=== PATIENT | female | born 1990 | race Hispanic/Latino ===

== ENCOUNTER 2016-12-02 13:31 | Emergency (ER) | payer OTHER ==
--- NOTE | 2016-12-02 13:46 | ED PDOC ---
Arrival/HPI - General Time Seen by Provider: 12/02/16 13:46 Historian: Patient - History of Present Illness Narrative History of Present Illness (Text): 12/02/16 13:46 26 y/o female, LMP 07/20/2016, , approx. 23 weeks , nkda, c/o lower pelvic cramp x 1 day with no fall or trauma. Pt. stated that she had lunch earlier, decided to check her blood pressure which was 160s/80s but 147/92 now, suddenly has the lower pelvic cramp, came to the ER. Pt. stated that [place]gyn [place] DR. Vinh Esparza. Pt. has no vaginal bleeding or discharge, no headache or night sweat, no dizziness, no rash, no other medical or psychological complaints. Past Medical History - Provider Review Nursing Documentation Reviewed: Yes - Cardiac Hx Cardiac Disorders: No Hx Hypertension: No - Pulmonary Hx Tuberculosis: No - Neurological HX Cerebrovascular Accident: No Hx Seizures: No - Hematological/Oncological Hx Cancer: No - Genitourinary/Gynecological Hx Sexually Transmitted Diseases: No - Psychiatric Hx Substance Use: Yes Family/Social History - Physician Review Nursing Documentation Reviewed: Yes Family/Social History: Unknown Family HX Hx Alcohol Use: Yes Hx Substance Use: Yes Substance used: MARIJUANA Allergies/Home Meds Allergies/Adverse Reactions: Allergies No Known Allergies Allergy (Verified 12/02/16 13:50) Home Medications: Home Meds Medication Instructions Recorded Confirmed #92/Iron/FA #8/Ps-Dha 1 each PO DAILY 12/02/16 12/02/16 [Enbrace Hr Softgel] Review of Systems - Review of Systems Constitutional: absent: Fatigue, Fevers Eyes: absent: Vision Changes ENT: absent: Hearing Changes Respiratory: absent: SOB, Cough Cardiovascular: absent: Chest Pain Gastrointestinal: absent: Abdominal Pain, Diarrhea, Nausea, Vomiting Genitourinary Female: absent: Dysuria, Frequency, Urine Output Changes, Vaginal Discharge Skin: absent: Rash, Pruritis Neurological: absent: Headache, Dizziness, Focal Weakness Psychiatric: absent: Anxiety, Depression Physical Exam Vital Signs Reviewed: Yes Vital Signs Temp Pulse Resp BP Pulse Ox 12/02/16 13:45 98.3 F 96 H 16 147/92 H 99 Temperature: Afebrile Blood Pressure: Hypertensive Pulse: Regular Respiratory Rate: Normal Appearance: Positive for: Well-Appearing, Non-Toxic, Comfortable Pain Distress: Mild Mental Status: Positive for: Alert and Oriented X 3 - Systems Exam Head: Present: Atraumatic, Normocephalic Pupils: Present: PERRL Extroacular Muscles: Present: EOMI Conjunctiva: Present: Normal Mouth: Present: Moist Mucous Membranes Neck: Present: Normal Range of Motion Respiratory/Chest: Present: Clear to Auscultation, Good Air Exchange. No: Respiratory Distress, Accessory Muscle Use Cardiovascular: Present: Regular Rate and Rhythm, Normal S1, S2. No: Murmurs Abdomen: Present: Normal Bowel Sounds. 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 No: Vaginal Discharge, Vaginal Bleeding, Adenexal Tenderness, Adenexal Mass, Cervical Motion Tendernes , Odor Back: Present: Normal Inspection Upper Extremity: Present: Normal Inspection. No: Cyanosis, Edema Lower Extremity: Present: Normal Inspection. No: Edema Neurological: Present: GCS=15, Speech Normal, Motor Func Grossly Intact, Gait Normal, Memory Normal Skin: Present: Warm, Dry, Normal Color. No: Rashes Psychiatric: Present: Alert, Oriented x 3, Normal Insight, Normal Concentration Medical Decision Making ED Course and Treatment: 12/02/16 14:43 -labs/ua -IVF/tylenol -Pelvic sono -Observe and reassess 12/02/16 15:43 -Labs are non-significant except wbc 18.6 and beta hcg 5009.80, afebrile with no fever or chills, no URI symptoms, blood culture added -UA show no UTI -Sonogram show Single live intrauterine gestation of approximately 23 weeks 0 days without evidence of anatomic abnormality. Breech presentation. Anterior placenta. No previa. Cervix closed. heart rate 162 beats per minute. EFW 529.11 g. -I discussed with the patient that she should be monitor and observed to a facility that has obgyn for further evaluation as this pain/wbc is unclear. 12/02/16 15:56 -Pt. refused transfer to another hospital to be evaluated by another obgyn or hospital, wants to be transferred to her own obgyn [facility] obgyn DR. Calli Carranza. -Paged out to Dr. Carranza. 12/02/16 16:40 -I spoke to DR. Nelson, discussed about the HPI/case/labs/radiology results/ vital signs in details, suggest no admission or transfer/observation indicated since patient labs and sonogram within normal limit except wbc 18 which don't treat the lab and treat the patient, suggest to repeat cbc in 1 week -I spoke to DR. Carranza's FREDY Ge, discussed about the case in detail including labs/radiology results and Dr. Nelson's consult, FREDY Ge stated that the patient can be discharged home and she will see the patient with DR. Pee hawk before 8pm or tomorrow morning -I discussed with Dr. Seay, discussed about the labs/radiology results/Dr. Nelson and Pee's FREDY Ge's consults, agreed that the patient can be discharged home. -Pt. is asymptomatic wbc 18 with the pelvic pain resolved. -Discharge home with education on taking tylenol for pain as needed, YOU NEED TO GO TO SEE DR. CARRANZA/FREDY HAWK BEFORE 8PM FOR FOLLOW or latest tomorrow morning, follow up with your own pmd/car rental agency manager and oncologist if needed within 2 days, return to the ER for any new or worsening signs or symptoms. - Lab Interpretations Lab Results: 12/02/16 14:30 12/02/16 14:30 Lab Results 12/02/16 15:22: Urine Color Yellow, Urine Appearance Clear, Urine pH 7.0, Ur Specific [place] <= 1.005, Urine Protein Negative, Urine Glucose (UA) Negative, Urine Ketones Negative, Urine Blood Negative, Urine Nitrate Negative, Urine Bilirubin Negative, Urine Urobilinogen 0.2, Ur Leukocyte Esterase Negative 12/02/16 14:30: Free T4 0.73 L, TSH 3rd Generation 1.36, Beta HCG, Quant 5009.80 H 12/02/16 14:30: Sodium 136, Potassium 4.0, Chloride 106, Carbon Dioxide 22, Anion Gap 12, BUN 5 L, Creatinine 0.5, Est GFR ( Amer) > 60, Est GFR (Non -Af Amer) > 60, Random Glucose 71, Calcium 9.4, Total Bilirubin 0.2, AST 22, ALT 16, Alkaline Phosphatase 105, Total Protein 7.0, Albumin 4.0, Globulin 3.0, Albumin/Globulin Ratio 1.3 12/02/16 14:30: WBC 18.6 H, RBC 4.14, Hgb 12.3, Hct 35.7 L, MCV 86.2, MCH 29.7, MCHC 34.5, RDW 12.9, Plt Count 387, MPV 9.5, Gran % 76.4 H, Lymph % (Auto) 18.6 L, [place] % (Auto) 4.1, Eos % (Auto) 0.8 L, Baso % (Auto) 0.1, Gran # 14.19 H, Lymph # 3.5 H, [place] # 0.8 H, Eos # 0.2, Baso # 0.02 I have reviewed the lab results: Yes Interpretation: Abnormal lab values (WBC 18.6 and beta hcg 5009.80) - RAD Interpretation Radiology Orders: 12/02/16 14:20 AGE [US] Routine PROCEDURE: Obstetrical ultrasound examination HISTORY: approx. 23 weeks ? cramp COMPARISON: Not available TECHNIQUE: Transabdominal FINDINGS: Ultrasound examination demonstrates a single live intrauterine gestation in breech presentation. The heart rate is 162 beats per minute. A normal quantity of amniotic fluid is visualized. A normal anterior placenta is identified. The cervix is closed and measures 3.0 cm in length. There is no evidence of placenta previa. biometry demonstrates an ultrasound age of 23 weeks 0 days. The JOHANNA by ultrasound is 03/31/2017. The EFW is 529.11 g. Limited review of anatomy demonstrates no evidence of hydrocephalus. A 4 chamber heart is demonstrated. There is fluid distending the stomach and urinary bladder. There is no evidence of hydronephrosis. A three-vessel umbilical cord is identified. The anterior abdominal wall is intact. No abnormality of the cervical, thoracic or lumbosacral spine is evident. IMPRESSION: Single live intrauterine gestation of approximately 23 weeks 0 days without evidence of anatomic abnormality. Breech presentation. Anterior placenta. No previa. Cervix closed. heart rate 162 beats per minute. EFW 529.11 g. Alining Inspector: Radiologist - Medication Orders Current Medication Orders: Sodium Chloride (Sodium Chloride 0.9%) 1,000 mls @ 100 mls/hr IV .Q10H [facility] Last Admin: 12/02/16 15:33 Dose: 100 mls/hr Discontinued Medications Acetaminophen (Tylenol 325mg Tab) 650 mg PO STAT STA Stop: 12/02/16 14:21 Last Admin: 12/02/16 15:33 Dose: 650 mg - PA / RESEARCH ENVIRONMENTAL ENGINEER / Resident Statement MD/DO has reviewed & agrees with the documentation as recorded. Disposition/Present on Arrival - Present on Arrival Any Indicators Present on Arrival: No History of DVT/PE: No History of Uncontrolled Diabetes: No Urinary Catheter: No History of Decub. Ulcer: No - Disposition Have Diagnosis and Disposition been Completed?: Yes Diagnosis: Leukocytosis, , Pelvic cramping Disposition: HOME/ ROUTINE Disposition Time: 15:24 Patient Plan: Discharge Patient Problems: Current Active Problems Problem Status Onset Leukocytosis Acute Acute Pelvic cramping Acute Condition: IMPROVED Additional Instructions: -Discharge home with education on taking tylenol for pain as needed, YOU NEED TO GO TO SEE DR. CARRANZA/FREDY HAWK BEFORE 8PM FOR FOLLOW or latest tomorrow morning, follow up with your own pmd/car rental agency manager and oncologist if needed within 2 days, return to the ER for any new or worsening signs or symptoms. Referrals: Purnima Hernández, [Primary Care Provider] - Follow up with primary Thiago Nelson MD [Staff Provider] - Follow up with primary Nikolas Mckenna MD [Staff Provider] - Follow up with primary Forms: WORK NOTE
[2016-12-02 13:50] VITALS: TEMP 98.3
[2016-12-02] MEDS ORDERED: Sodium Chloride 0.9% 1,000 ML IV SCH (14:30)
[2016-12-02 14:45] LABS: BASO # 0.02 K/mm3 (0.0-2.0); BASO % 0.1 % (0.0-3.0); EOS # 0.2 (0.0-0.7); EOS % 0.8 % (1.5-5.0); GRAN # 14.19 (1.4-6.5); GRAN % 76.4 % (50.0-68.0); HEMATOCRIT 35.7 % (36.0-48.0); LYMPH # 3.5 (1.2-3.4); LYMPH % 18.6 % (22.0-35.0); MEAN CELL VOLUME 86.2 fl (80.0-105.0); MEAN CORPUSCULAR HEMOGLOBIN 29.7 pg (25.0-35.0); MEAN CORPUSCULAR HGB CONC 34.5 g/dl (31.0-37.0); MEAN PLATELET VOLUME 9.5 fl (7.0-11.0); MONO # 0.8 (0.1-0.6); MONO % 4.1 % (1.0-6.0); RED CELL DISTRIBUTION WIDTH 12.9 % (11.5-14.5); WHITE BLOOD COUNT 18.6 10^3/ul (4.5-11.0)
[2016-12-02 14:51] LABS: ALB/GLOB RATIO 1.3 (1.1-1.8); ALKALINE PHOSPHATASE 105 U/L (38-126); ALT/SGPT 16 U/L (7-56); AST/SGOT 22 U/L (14-36); BILIRUBIN,TOTAL 0.2 mg/dL (0.2-1.3); BLOOD UREA NITROGEN 5 mg/dL (7-21); CALCIUM 9.4 mg/dL (8.4-10.5); CARBON DIOXIDE 22 mmol/L (21-33); CHLORIDE 106 mmol/L (98-107); GFR AFRICAN-AMERICAN > 60; GLUCOSE,RANDOM 71 mg/dL (70-110); SODIUM 136 mmol/L (132-148)
[2016-12-02 15:10] LABS: FREE T4 0.73 ng/dL (0.78-2.19)
[2016-12-02 15:23] LABS: THYROID STIMULATING HORMONE 1.36 mIU/mL (0.46-4.68)
[2016-12-02 15:27] LABS: URINE APPEARANCE CLEAR (CLEAR); URINE BILIRUBIN NEGATIVE (NEGATIVE); URINE BLOOD NEGATIVE (NEGATIVE); URINE COLOR YELLOW (YELLOW); URINE GLUCOSE (UA) NEGATIVE (NEGATIVE); URINE KETONE NEGATIVE (NEGATIVE); URINE LEUKOCYTE ESTERASE NEGATIVE Leu/uL (NEGATIVE); URINE PROTEIN NEGATIVE mg/dL (<30 mg/dL); URINE UROBILINOGEN 0.2 E.U./dL (<1 E.U./dL)
--- NOTE | 2016-12-02 15:39 | US ---
PROCEDURE: Obstetrical ultrasound examination HISTORY: approx. 23 weeks ? cramp COMPARISON: Not available TECHNIQUE: Transabdominal FINDINGS: Ultrasound examination demonstrates a single live intrauterine gestation in breech presentation. The heart rate is 162 beats per minute. A normal quantity of amniotic fluid is visualized. A normal anterior placenta is identified. The cervix is closed and measures 3.0 cm in length. There is no evidence of placenta previa. biometry demonstrates an ultrasound age of 23 weeks 0 days. The JOHANNA by ultrasound is 03/31/2017. The EFW is 529.11 g. Limited review of anatomy demonstrates no evidence of hydrocephalus. A 4 chamber heart is demonstrated. There is fluid distending the stomach and urinary bladder. There is no evidence of hydronephrosis. A three-vessel umbilical cord is identified. The anterior abdominal wall is intact. No abnormality of the cervical, thoracic or lumbosacral spine is evident. IMPRESSION: Single live intrauterine gestation of approximately 23 weeks 0 days without evidence of anatomic abnormality. Breech presentation. Anterior placenta. No previa. Cervix closed. heart rate 162 beats per minute. EFW 529.11 g.
[2016-12-02 16:58] VITALS: BP 126/84; PULSE 72; RESP 16; O2SAT 99
== END 2016-12-02 16:58 | disposition home or self-care (01) ==
LOC: ED 13:31
DX: O26.892 Other specified pregnancy related conditions, second trimester (principal); Z3A.23 23 weeks gestation of pregnancy; R10.2 Pelvic and perineal pain; D72.829 Elevated white blood cell count, unspecified
CPT/HCPCS: 76815; 80053; 81003; 84439; 84443; 84702; 85025; 86850; 86900; 87040; 99284; J7040

== ENCOUNTER 2017-06-16 08:38 | Inpatient (IN) | payer MEDICAID, OTHER ==
[2017-06-16 08:48] VITALS: BMI 25.8
--- NOTE | 2017-06-16 09:39 | ED PDOC ---
Arrival/HPI - General Chief Complaint: Back Pain Time Seen by Provider: 06/16/17 08:45 Historian: Patient - History of Present Illness Narrative History of Present Illness (Text): 06/16/17 09:40 A 27 year old female, whose past medical history includes , 3 months , presents to the emergency department complaining of epigastric, RLQ and RUQ abdominal pain that developed four days ago. Patient describes pain as cramping, worse after eating. Patient notes RLQ and RUQ abdominal pain radiating to her right side, developed after epigastric pain. LMP ended . Reports to having similar epigastric pain when she was . Patient has family history of kidney stones. Reports nausea and dizziness this morning. Also states intermittent lower back pain radiating down right leg. No incontinence of urine or stool. No focal leg weakness reported. Time/Duration: < week Symptom Onset: Sudden Symptom Course: Unchanged Activities at Onset: Rest Context: Home Past Medical History - Provider Review Nursing Documentation Reviewed: Yes - Infectious Disease Hx of Infectious Diseases: None - Reproductive Menopause: No - Cardiac Hx Cardiac Disorders: No - Pulmonary Hx Tuberculosis: No - Neurological HX Cerebrovascular Accident: No Hx Seizures: No - Hematological/Oncological Hx Cancer: No - Genitourinary/Gynecological Hx Sexually Transmitted Diseases: No - Psychiatric Hx Substance Use: Yes - Anesthesia Hx Anesthesia: No Hx Anesthesia Reactions: No Hx Malignant Hyperthermia: No Family/Social History - Physician Review Nursing Documentation Reviewed: Yes Family/Social History: No Known Family HX Smoking Status: Current Some Days Smoker Hx Alcohol Use: Yes Hx Substance Use: Yes Substance used: MARIJUANA Allergies/Home Meds Allergies/Adverse Reactions: Allergies divalproex sodium [From Depakote] Adverse Reaction (Verified 06/16/17 08:57) SWELLING Home Medications: Home Meds Medication Instructions Recorded Confirmed No Known Home Med 06/16/17 06/16/17 Review of Systems - Review of Systems Constitutional: absent: Fevers Eyes: absent: Vision Changes ENT: absent: Hearing Changes Respiratory: absent: SOB Cardiovascular: absent: Chest Pain, Orthopnea Gastrointestinal: Abdominal Pain (epigastric, RUQ, RLQ), Nausea Genitourinary Female: absent: Dysuria, Frequency, Hematuria Musculoskeletal: Back Pain, Other (r flank pain, right lower back pain radiating down right leg). absent: Neck Pain Skin: absent: Rash Neurological: Dizziness. absent: Focal Weakness Endocrine: absent: Polyuria Hemo/Lymphatic: absent: Easy Bleeding Psychiatric: absent: Depression Physical Exam - Physical Exam Narrative Physical Exam (Text): 06/16/17 09:37 Head: Atraumatic. Normocephalic. Eyes: PERRL. EOMI. Conjunctivae are not pale. ENT: Mucous membranes are moist and intact. Oropharynx is clear and symmetric. Neck: Supple. Full ROM. No JVD. No lymphadenopathy. Cardiovascular: Regular rate. Regular rhythm. No murmurs, rubs, or gallops. Distal pulses are 2+ and symmetric. Pulmonary/Chest: No evidence of respiratory distress. Clear to auscultation bilaterally. No wheezing, rales or rhonchi. Abdominal: Epigastric, RUQ and RLQ pain. No rebound, guarding, or rigidity. No organomegaly. Good bowel sounds. Back: No CVA tenderness. No pain with straight leg testing. Mild lower lumbar paraspinal tenderness. No edema or erythema. Extremities: No edema. No cyanosis. No clubbing. Full range of motion in all extremities. No calf tenderness. Skin: Skin is warm and dry. No petechiae. No purpura. Neurological: Alert, awake, and oriented to person, place, time, and situation. Normal speech. No saddle anesthesia. Normal gait. Motor and sensory exam intact. Psychiatric: Good eye contact. Normal interaction, affect, and behavior. Vital Signs Reviewed: Yes Vital Signs Temp Pulse Resp BP Pulse Ox 06/16/17 14:38 80 18 129/76 99 06/16/17 11:38 97.5 F L 60 18 116/56 L 100 06/16/17 08:48 98.2 F 74 16 137/91 H 99 Temperature: Afebrile Blood Pressure: Hypertensive Pulse: Regular Respiratory Rate: Normal Appearance: Positive for: Well-Appearing, Non-Toxic, Uncomfortable Pain Distress: Mild Mental Status: Positive for: Alert and Oriented X 3 Medical Decision Making ED Course and Treatment: 06/16/17 09:37 Impression: A 27 year old female with epigastric, RUQ and RLQ abdominal pain. Differential Diagnosis included but are not limited to: gallstones vs. appendicitis vs. kidney stones Plan: -- US abdomen -- CT abdomen/pelvis -- labs -- Urinalysis -- Pepcid, IV fluids -- Reassess and disposition Progress Notes: Patient reports pain for four days. Denies acute worsening of pain. No fever. Denies chills. Pain not colicky in nature. Denies bloody urine or stool. As pain started in epigastric region with associated back pain, ultrasound ordered to assess gallbladder: 06/16/17 10:44 US abdomen- Creator : Hailey Morin MD IMPRESSION: Mild hepatomegaly. No cholelithiasis or biliary dilatation. Due to persistent pain, ct abdomen/pelvis ordered. Risks/benefits reviewed with patient. 06/16/17 13:37 CT Abdomen and Pelvis with contrast Creator : Darnell Rodriguez MD FINDINGS: LOWER THORAX: Unremarkable. LIVER: Unremarkable. No gross lesion or ductal dilatation. GALLBLADDER AND BILE DUCTS: Unremarkable. PANCREAS: Unremarkable. No gross lesion or ductal dilatation. SPLEEN: Unremarkable. ADRENALS: Unremarkable. No mass. KIDNEYS AND URETERS: Unremarkable. No hydronephrosis. No solid mass. VASCULATURE: Unremarkable. No aortic aneurysm. BOWEL: Unremarkable. No obstruction. No gross mural thickening. APPENDIX: The appendix is dilated and does not opacify with oral contrast. The appendix measures 9 mm in diameter. There are some minimal inflammatory changes in the adjacent fat planes. Findings are consistent with early appendicitis. Findings were discussed with Dr. Humphreys at 1:30 p.m. PERITONEUM: Unremarkable. No free fluid. No free air. LYMPH NODES: Unremarkable. No enlarged lymph nodes. BLADDER: Unremarkable. REPRODUCTIVE: Ovarian cysts are seen. There is a small amount of fluid in the cul-de-sac. BONES: No acute fracture. IMPRESSION: Early appendicitis. CT findings reviewed with patient. On-call surgery paged, case reviewed with rn medical surgical. On re-exam she has moderate pain, currently cv stable with no nausea or fever. Will admit to surgical service after review with hospitalist. Further treatment as per surgical team. IV antibitoics ordered. - Lab Interpretations Lab Results: 06/16/17 09:55 06/16/17 09:55 Lab Results 06/16/17 09:55: Sodium 142, Potassium 4.4, Chloride 108 H, Carbon Dioxide 25, Anion Gap 14, BUN 9, Creatinine 0.8, Est GFR ( Amer) > 60, Est GFR (Non- Af Amer) > 60, Random Glucose 86, Calcium 9.8, Total Bilirubin 0.1 L, AST 29, ALT 61 H, Alkaline Phosphatase 77, Total Protein 7.5, Albumin 4.3, Globulin 3.2 , Albumin/Globulin Ratio 1.3, Amylase 114, Lipase 441 H 06/16/17 09:55: WBC 8.9 D, RBC 4.94, Hgb 14.2, Hct 41.8, MCV 84.6, MCH 28.7, MCHC 34.0, RDW 12.7, Plt Count 348, MPV 9.5, Gran % 46.1 L, Lymph % (Auto) 46.0 H, [place] % (Auto) 5.4, Eos % (Auto) 2.2, Baso % (Auto) 0.3, Gran # 4.10, Lymph # (Auto) 4.1 H, [place] # (Auto) 0.5, Eos # (Auto) 0.2, Baso # (Auto) 0.03 06/16/17 09:55: Urine Color Yellow, Urine Appearance Clear, Urine pH 6.5, Ur Specific [place] 1.010, Urine Protein Negative, Urine Glucose (UA) Negative, Urine Ketones Negative, Urine Blood Negative, Urine Nitrate Negative, Urine Bilirubin Negative, Urine Urobilinogen 0.2, Ur Leukocyte Esterase Negative, Urine HCG, Qual Negative I have reviewed the lab results: Yes - RAD Interpretation Radiology Orders: 06/16/17 09:32 ABDOMEN COMPLETE [US] Stat 06/16/17 10:49 ABD PELVIS PO & IV CONTRAST [CT] Stat - Medication Orders Current Medication Orders: Acetaminophen (Tylenol 325mg Tab) 650 mg PO Q6 PRN PRN Reason: Pain, Mild (1-3) Enoxaparin Sodium (Lovenox) 40 mg SC DAILY [facility] PRN Reason: Protocol Metronidazole (Flagyl) 500 mg in 100 mls @ 100 mls/hr IVPB Q8 ANGELIA PRN Reason: Protocol Last Admin: 06/16/17 14:50 Dose: 100 mls/hr eMAR Start Stop Document 06/16/17 14:50 LA (Rec: 06/16/17 14:52 TRU [id number]) Intravenous Solution Start Date 06/16/17 Start Time 14:52 End Date 06/16/17 End time 15:52 Total Infusion Time 60 Ceftriaxone Sodium (Rocephin 1 Gram Ivpb) 1 gm in 100 mls @ 100 mls/hr IVPB DAILY ANGELIA PRN Reason: Protocol Stop: 06/21/17 10:59 Sodium Chloride (Sodium Chloride 0.9%) 1,000 mls @ 125 mls/hr IV .Q8H ANGELIA Morphine Sulfate (Morphine) 4 mg IVP Q4 PRN PRN Reason: Pain, severe (8-10) Nicotine (Nicoderm Cq) 1 patch TD DAILY ANGELIA Ondansetron HCl (Zofran Inj) 4 mg IVP Q6 PRN PRN Reason: Nausea/Vomiting Discontinued Medications Famotidine (Pepcid) 20 mg IVP STAT STA Stop: 06/16/17 09:33 Last Admin: 06/16/17 10:01 Dose: 20 mg IVP Administration Document 06/16/17 10:01 LA (Rec: 06/16/17 10:02 TRU [email or web address]) Charges for Administration # of IVP Administrations 1 Sodium Chloride (Sodium Chloride 0.9%) 1,000 mls @ 100 mls/hr IV .Q10H ANGELIA Last Admin: 06/16/17 10:02 Dose: 100 mls/hr eMAR Start Stop Document 06/16/17 10:02 LA (Rec: 06/16/17 10:02 TRU [email or web address]) Intravenous Solution Start Date 06/16/17 Start Time 10:02 Ceftriaxone Sodium (Rocephin 1 Gram Ivpb) 1 gm in 100 mls @ 200 mls/hr IVPB ONCE STA PRN Reason: Protocol Stop: 06/16/17 14:18 Last Admin: 06/16/17 14:36 Dose: 200 mls/hr eMAR Start Stop Document 06/16/17 14:36 LA (Rec: 06/16/17 14:37 TRU [id number]) Intravenous Solution Start Date 06/16/17 Start Time 14:36 End Date 06/16/17 End time 15:06 Total Infusion Time 30 - Scribe Statement The provider has reviewed the documentation as recorded by the Clint Hodges Provider Scribe Attestation: All medical record entries made by the Scribe were at my direction and personally dictated by me. I have reviewed the chart and agree that the record accurately reflects my personal performance of the history, physical exam, medical decision making, and the department course for this patient. I have also personally directed, reviewed, and agree with the discharge instructions and disposition. Disposition/Present on Arrival - Present on Arrival Any Indicators Present on Arrival: No History of DVT/PE: No History of Uncontrolled Diabetes: No Urinary Catheter: No History of Decub. Ulcer: No History Surgical Site Infection Following: None - Disposition Have Diagnosis and Disposition been Completed?: Yes Diagnosis: Appendicitis, Abdominal pain Disposition: HOSPITALIZED Disposition Time: 13:47 Patient Plan: Admission Patient Problems: Current Active Problems Problem Status Onset Abdominal pain Acute Appendicitis Acute Condition: FAIR
[2017-06-16] MEDS ORDERED: Sodium Chloride 0.9% 1,000 ML IV SCH ×2 (09:45→14:45)
[2017-06-16 10:16] LABS: BASO # 0.03 K/mm3 (0.0-2.0); BASO % 0.3 % (0.0-3.0); EOS # 0.2 (0.0-0.7); EOS % 2.2 % (1.5-5.0); GRAN # 4.1 (1.4-6.5); GRAN % 46.1 % (50.0-68.0); HEMOGLOBIN 14.2 g/dL (12.0-16.0); LYMPH # 4.1 (1.2-3.4); MEAN CELL VOLUME 84.6 fl (80.0-105.0); MEAN CORPUSCULAR HEMOGLOBIN 28.7 pg (25.0-35.0); MEAN PLATELET VOLUME 9.5 fl (7.0-11.0); MONO # 0.5 (0.1-0.6); MONO % 5.4 % (1.0-6.0); RBC 4.94 10^6/uL (3.5-6.1); RED CELL DISTRIBUTION WIDTH 12.7 % (11.5-14.5); WHITE BLOOD COUNT 8.9 10^3/ul (4.5-11.0)
[2017-06-16 10:19] LABS: PH,URINE 6.5 (4.7-8.0); URINE BILIRUBIN NEGATIVE (NEGATIVE); URINE BLOOD NEGATIVE (NEGATIVE); URINE GLUCOSE (UA) NEGATIVE (NEGATIVE); URINE LEUKOCYTE ESTERASE NEGATIVE Leu/uL (NEGATIVE); URINE PROTEIN NEGATIVE mg/dL (<30 mg/dL); URINE UROBILINOGEN 0.2 E.U./dL (<1 E.U./dL)
[2017-06-16 10:22] LABS: URINE APPEARANCE CLEAR (CLEAR); URINE COLOR YELLOW (YELLOW)
[2017-06-16 10:23] LABS: HCG,QUALITATIVE URINE NEGATIVE (NEGATIVE)
[2017-06-16 10:25] LABS: ALB/GLOB RATIO 1.3 (1.1-1.8); ALBUMIN 4.3 g/dL (3.0-4.8); ALT/SGPT 61 U/L (7-56); AMYLASE 114 U/L (35-125); AST/SGOT 29 U/L (14-36); BLOOD UREA NITROGEN 9 mg/dL (7-21); CALCIUM 9.8 mg/dL (8.4-10.5); GFR AFRICAN-AMERICAN > 60; GFR NON-AFRICAN AMERICAN > 60; LIPASE 441 U/L (23-300)
--- NOTE | 2017-06-16 10:43 | US ---
HISTORY: Upper abdominal pain COMPARISON: None. TECHNIQUE: Grayscale imaging was performed. FINDINGS: LIVER: Measures 18.8 cm. Normal echogenicity of the liver parenchyma. No mass. No intrahepatic bile duct dilatation. GALLBLADDER: There are no gallstones, wall thickening or pericholecystic fluid. The sonographic Saunders's sign is negative. COMMON BILE DUCT: Measures 4.2 mm. No stones. No dilatation. PANCREAS: Unremarkable as visualized. No mass. No ductal dilatation. RIGHT KIDNEY: Measures 10.7cm. Normal echogenicity. No calculus, mass, or hydronephrosis. LEFT KIDNEY: Measures 11.5cm. Normal echogenicity. No calculus, mass, or hydronephrosis. SPLEEN: Normal in size and contour. No mass. AORTA: No aneurysmal dilatation. IVC: Unremarkable. OTHER FINDINGS: None. IMPRESSION: Mild hepatomegaly. No cholelithiasis or biliary dilatation.
[2017-06-16] MEDS ORDERED: Iohexol 240 (50 ml) ONE (10:51)
[2017-06-16] MEDS ORDERED: Iohexol 350 MG/100 ML VIAL ONE (12:46)
--- NOTE | 2017-06-16 13:36 | CT ---
PROCEDURE: CT Abdomen and Pelvis with contrast HISTORY: rlq abdominal pain COMPARISON: None. TECHNIQUE: Contrast dose: 100 cc of Omni 350 Radiation dose: Total exam DLP = 625 mGy-cm. This CT exam was performed using one or more of the following dose reduction techniques: Automated exposure control, adjustment of the mA and/or kV according to patient size, and/or use of iterative reconstruction technique. FINDINGS: LOWER THORAX: Unremarkable. LIVER: Unremarkable. No gross lesion or ductal dilatation. GALLBLADDER AND BILE DUCTS: Unremarkable. PANCREAS: Unremarkable. No gross lesion or ductal dilatation. SPLEEN: Unremarkable. ADRENALS: Unremarkable. No mass. KIDNEYS AND URETERS: Unremarkable. No hydronephrosis. No solid mass. VASCULATURE: Unremarkable. No aortic aneurysm. BOWEL: Unremarkable. No obstruction. No gross mural thickening. APPENDIX: The appendix is dilated and does not opacify with oral contrast. The appendix measures 9 mm in diameter. There are some minimal inflammatory changes in the adjacent fat planes. Findings are consistent with early appendicitis. Findings were discussed with Dr. Humphreys at 1:30 p.m. PERITONEUM: Unremarkable. No free fluid. No free air. LYMPH NODES: Unremarkable. No enlarged lymph nodes. BLADDER: Unremarkable. REPRODUCTIVE: Ovarian cysts are seen. There is a small amount of fluid in the cul-de-sac. BONES: No acute fracture. OTHER FINDINGS: None. IMPRESSION: Early appendicitis
[2017-06-16] MEDS ORDERED: cefTRIAXone 1 gm 1 GM/100 ML BAG IVPB STA (13:49)
[2017-06-16] MEDS ORDERED: metroNIDAZOLE IV 500 mg/100 ml 500 MG/100 ML BAG IVPB SCH (14:00)
[2017-06-16] MEDS ORDERED: Morphine 4 mg/ml ISec IVP PRN (14:31)
--- NOTE | 2017-06-16 14:37 | CP.PCM.HP ---
History of Present Illness - History of Present Illness History of Present Illness: H&P for Dr Larsen: Reason for consult: acute appendicitis 27 year old , with no significant PMH, presents to ED for RLQ abdominal pain for past 4 days. Pt describes it achy, rates it 6-8/10, constant, radiating to the right lower back, has associated mild nausea and loose nonbloody, diarrheal episode this AM. Denies fever, chills, decreased appetite, vomiting, cp, sob, cough, urinary symptoms, leg swelling. Denies eating anything unusual, sick contacts, recent travel. In ED, pt afebrile, hemodynamically stable, no leukocytosis. Abd US showed no cholelithiasis. CT abd pelvis showed early appendicitis, minimal inflammatory changes, 8 mm in diameter. 12 point ROS obtained and negative, except as per HPI. PMH: bipolar disorder, anxiety PSH: (3 months ago) All: [place] (respiratory symptoms) FH: Mother, HTN SH: Lives with and 3 month old son. Smokes 1 ppdx12 years, Denies alcohol/illicit drug use. Prior marijuana use 5 years ago. Present on Admission - Present on Admission Any Indicators Present on Admission: No History of DVT/PE: No History of Uncontrolled Diabetes: No Urinary Catheter: No Decubitus Ulcer Present: No Review of Systems - Review of Systems All systems: reviewed and no additional remarkable complaints except Review of Systems: per HPI Past Patient History - Infectious Disease Hx of Infectious Diseases: None - Past Social History Smoking Status: Current Some Days Smoker - CARDIAC Hx Cardiac Disorders: No - PULMONARY Hx Tuberculosis: No - NEUROLOGICAL HX Cerebrovascular Accident: No Hx Seizures: No - HEMATOLOGICAL/ONCOLOGICAL Hx Cancer: No - GENITOURINARY/GYNECOLOGICAL Hx Sexually Transmitted Disorders: No - PSYCHIATRIC Hx Substance Use: Yes - ANESTHESIA Hx Anesthesia: No Hx Anesthesia Reactions: No Hx Malignant Hyperthermia: No Meds Allergies/Adverse Reactions: Allergies Allergy/AdvReac Type Severity Reaction Status Date / Time divalproex sodium AdvReac SWELLING Verified 06/16/17 08:57 [From Depakote] Physical Exam - Constitutional Appears: Non-toxic, No Acute Distress - Head Exam Head Exam: ATRAUMATIC, NORMOCEPHALIC - Eye Exam Eye Exam: EOMI, PERRL. absent: Conjunctival injection, Nystagmus, Scleral icterus Pupil Exam: NORMAL ACCOMODATION, PERRL. absent: Fixed, Irregular, Unequal - ENT Exam ENT Exam: Mucous Membranes Moist - Neck Exam Neck exam: Positive for: Normal Inspection - Respiratory Exam Respiratory Exam: Clear to Auscultation Bilateral, NORMAL BREATHING PATTERN. absent: Rales, Rhonchi, Wheezes, Respiratory Distress, Stridor - Cardiovascular Exam Cardiovascular Exam: RRR, +S1, +S2. absent: Systolic Murmur - GI/Abdominal Exam GI & Abdominal Exam: Hypoactive Bowel Sounds, Soft, Tenderness (TTP in RLQ, + McBurney's point, negative Rovsings, obturator sign). absent: Distended, Firm, Mass, Rebound, Rigid - Extremities Exam Extremities exam: Positive for: normal inspection. Negative for: calf tenderness, pedal edema - Back Exam Back exam: NORMAL INSPECTION - Neurological Exam Neurological exam: Alert, Oriented x3 - Psychiatric Exam Psychiatric exam: Anxious - Skin Skin Exam: Dry, Normal Color, Warm Results - Vital Signs Recent Vital Signs: Last Vital Signs Temp 97.5 F L 06/16/17 11:38 Pulse 60 06/16/17 11:38 Resp 18 06/16/17 11:38 BP 116/56 L 06/16/17 11:38 Pulse Ox 100 06/16/17 11:38 - Labs Result Diagrams: 06/16/17 09:55 06/16/17 09:55 Assessment & Plan - Assessment and Plan (Free Text) Assessment: 27 year old female with no significant PMH, presents for acute appendicitis: - NPO - IVF - Pain control - OR this afternoon - Offered nicotine patch, refused - Consider Xanax prn for anxiety - Further recs per Dr Larsen. - Date & Time Date: 06/16/17 Time: 14:39
[2017-06-16] MEDS ORDERED: Midazolam 2 MG/2 ML VIAL ONE (15:04)
[2017-06-16] MEDS ORDERED: Propofol 10 mg/ml Inj (20 ML) ONE (15:04)
[2017-06-16] MEDS ORDERED: Morphine 2 mg/ml ISec IVP PRN (15:55)
[2017-06-16] MEDS ORDERED: Glycopyrrolate 0.2 mg/ml (2ml vial) ONE (15:57)
[2017-06-16] MEDS ORDERED: Rocuronium 10 mg/ml (5 ml) ONE (15:57)
[2017-06-16] MEDS ORDERED: Neostigmine Methylsulfate 3mg/3ml Syringe IV ONE (15:58)
[2017-06-16] MEDS ORDERED: Lactated Ringer's 1,000 ML IV SCH (16:00)
[2017-06-16] MEDS ORDERED: Oxycodone/Acetaminophen 5/325 mg Tab PO PRN (16:29)
--- NOTE | 2017-06-16 16:29 | PCM.SURG1 ---
Surgeon's Initial Post Op Note - Surgeon's Notes Surgeon: Dr. Larsen Retread Builder: Dr. Pedro Mortensen Type of Anesthesia: General Endo Pre-Operative Diagnosis: Acute Appendicitis Operative Findings: Acute Appendicitis Post-Operative Diagnosis: Acute Appendicitis Operation Performed: Laparoscopic Appendectomy Specimen/Specimens Removed: Appendix Estimated Blood Loss: EBL {In ML}: 30 Blood Products Given: N/A Drains Used: No Drains Post-Op Condition: Good Date of Surgery/Procedure: 06/16/17 Time of Surgery/Procedure: 15:30
[2017-06-16] MEDS ORDERED: Morphine 2 mg/ml ISec ONE ×2 (17:03→17:17)
[2017-06-16 17:54] VITALS: O2SAT 98
[2017-06-16 18:06] VITALS: TEMP 97.9
[2017-06-16] MEDS: metroNIDAZOLE IV 500 mg/100 ml 500 MG/100 ML BAG IVPB SCH (21:48)
--- NOTE | 2017-06-17 00:42 | OP ---
PROCEDURE DATE: 06/16/2017 PREOPERATIVE DIAGNOSIS: Acute appendicitis. POSTOPERATIVE DIAGNOSIS: Acute appendicitis. PROCEDURE: Laparoscopic appendectomy. SURGEON: Chava. CLINIC SPECIALIST: Dr. Antunez and Dr. Cazares. TYPE OF ANESTHESIA: General, Dr. Bruno. DESCRIPTION OF OPERATION: With the patient in the supine position under adequate general anesthesia, the abdomen was prepped and draped in the usual sterile manner. Varus needle puncture was performed at the umbilicus with insufflation to 12 cm water pressure of CO2 and a 10 mm trocar was inserted via an infraumbilical incision. Under direct vision, 5 and 12 mm trocars were inserted in the left lower quadrant. The patient was status post recent section and the 12 mm port was inserted via the incision. The appendix was identified, it was noted to be acutely inflamed, particularly the distal portion, which was thickened and adherent to the pelvic side wall. The appendix was freed and elevated and then dissected close to the junction with the cecum. The appendix was divided at this point with Endo TORRES stapler. The mesoappendix was then developed and divided with a second pass of the Endo TORRES stapler. The area of the appendiceal artery was reinforced with Hemoclips. The appendix was placed in a specimen retrieval bag and removed via the 12 mm port site. The pelvis and right gutter were irrigated and suctioned. The pneumoperitoneum was released and the trocars were removed. The 12 mm and umbilical port sites were closed with [id number] fascial sutures of 0 Vicryl. All incisions were closed with 4-0 Monocryl subcuticular sutures and Dermabond. The patient tolerated the procedure well and transferred to the recovery room in stable condition. Estimated blood loss for the procedure was 30 mL. Dwayne Larsen MD
[2017-06-17] MEDS: metroNIDAZOLE IV 500 mg/100 ml 500 MG/100 ML BAG IVPB SCH (05:16)
[2017-06-17 07:17] LABS: BASO # 0.02 K/mm3 (0.0-2.0); BASO % 0.2 % (0.0-3.0); EOS # 0.1 (0.0-0.7); GRAN # 6.62 (1.4-6.5); GRAN % 57.6 % (50.0-68.0); HEMOGLOBIN 12.6 g/dL (12.0-16.0); MEAN CELL VOLUME 85.6 fl (80.0-105.0); MEAN CORPUSCULAR HEMOGLOBIN 27.9 pg (25.0-35.0); MEAN CORPUSCULAR HGB CONC 32.6 g/dl (31.0-37.0); MEAN PLATELET VOLUME 9.2 fl (7.0-11.0); MONO # 0.7 (0.1-0.6); MONO % 6.2 % (1.0-6.0); RBC 4.52 10^6/uL (3.5-6.1); RED CELL DISTRIBUTION WIDTH 12.7 % (11.5-14.5); WHITE BLOOD COUNT 11.5 10^3/ul (4.5-11.0)
[2017-06-17 07:50] LABS: BLOOD UREA NITROGEN 6 mg/dL (7-21); CALCIUM 8.9 mg/dL (8.4-10.5); GFR AFRICAN-AMERICAN > 60; GFR NON-AFRICAN AMERICAN > 60; LIPASE 29 U/L (23-300)
[2017-06-17 08:01] VITALS: BP 125/52; PULSE 72; RESP 20
--- NOTE | 2017-06-17 09:43 | CP.PCM.DIS ---
Provider - Provider Date of Admission: 06/16/17 14:04 Attending physician: Dwayne Larsen MD Primary care physician: Swathi Srivastava MD Time Spent in preparation of Discharge (in minutes): 35 Diagnosis - Discharge Diagnosis (1) Abdominal pain Status: Acute (2) Appendicitis Status: Acute Hospital Course - Lab Results Lab Results: Most Recent Lab Values WBC 11.5 10^3/ul (4.5-11.0) H D 06/17/17 06:30 RBC 4.52 10^6/uL (3.5-6.1) 06/17/17 06:30 Hgb 12.6 g/dL (12.0-16.0) 06/17/17 06:30 Hct 38.7 % (36.0-48.0) 06/17/17 06:30 MCV 85.6 fl (80.0-105.0) 06/17/17 06:30 MCH 27.9 pg (25.0-35.0) 06/17/17 06:30 MCHC 32.6 g/dl (31.0-37.0) 06/17/17 06:30 RDW 12.7 % (11.5-14.5) 06/17/17 06:30 Plt Count 298 10^3/uL (120.0-450.0) 06/17/17 06:30 MPV 9.2 fl (7.0-11.0) 06/17/17 06:30 Gran % 57.6 % (50.0-68.0) 06/17/17 06:30 Lymph % (Auto) 35.0 % (22.0-35.0) 06/17/17 06:30 [place] % (Auto) 6.2 % (1.0-6.0) H 06/17/17 06:30 Eos % (Auto) 1.0 % (1.5-5.0) L 06/17/17 06:30 Baso % (Auto) 0.2 % (0.0-3.0) 06/17/17 06:30 Gran # 6.62 (1.4-6.5) H 06/17/17 06:30 Lymph # (Auto) 4.0 (1.2-3.4) H 06/17/17 06:30 [place] # (Auto) 0.7 (0.1-0.6) H 06/17/17 06:30 Eos # (Auto) 0.1 (0.0-0.7) 06/17/17 06:30 Baso # (Auto) 0.02 K/mm3 (0.0-2.0) 06/17/17 06:30 Sodium 140 mmol/L (132-148) 06/17/17 06:30 Potassium 4.1 mmol/L (3.6-5.0) 06/17/17 06:30 Chloride 108 mmol/L (98-107) H 06/17/17 06:30 Carbon Dioxide 26 mmol/L (21-33) 06/17/17 06:30 Anion Gap 10 (10-20) 06/17/17 06:30 BUN 6 mg/dL (7-21) L 06/17/17 06:30 Creatinine 0.7 mg/dl (0.7-1.2) 06/17/17 06:30 Est GFR ( Amer) > 60 06/17/17 06:30 Est GFR (Non-Af Amer) > 60 06/17/17 06:30 Random Glucose 89 mg/dL (70-110) 06/17/17 06:30 Calcium 8.9 mg/dL (8.4-10.5) 06/17/17 06:30 Total Bilirubin 0.1 mg/dL (0.2-1.3) L 06/16/17 09:55 AST 29 U/L (14-36) 06/16/17 09:55 ALT 61 U/L (7-56) H 06/16/17 09:55 Alkaline Phosphatase 77 U/L (38-126) 06/16/17 09:55 Total Protein 7.5 g/dL (5.8-8.3) 06/16/17 09:55 Albumin 4.3 g/dL (3.0-4.8) 06/16/17 09:55 Globulin 3.2 gm/dL 06/16/17 09:55 Albumin/Globulin Ratio 1.3 (1.1-1.8) 06/16/17 09:55 Amylase 114 U/L (35-125) 06/16/17 09:55 Lipase 29 U/L (23-300) 06/17/17 06:30 Urine Color Yellow (YELLOW) 06/16/17 09:55 Urine Appearance Clear (CLEAR) 06/16/17 09:55 Urine pH 6.5 (4.7-8.0) 06/16/17 09:55 Ur Specific [place] 1.010 (1.005-1.035) 06/16/17 09:55 Urine Protein Negative mg/dL (<30 mg/dL) 06/16/17 09:55 Urine Glucose (UA) Negative mg/dL (NEGATIVE) 06/16/17 09:55 Urine Ketones Negative mg/dL (NEGATIVE) 06/16/17 09:55 Urine Blood Negative (NEGATIVE) 06/16/17 09:55 Urine Nitrate Negative (NEGATIVE) 06/16/17 09:55 Urine Bilirubin Negative (NEGATIVE) 06/16/17 09:55 Urine Urobilinogen 0.2 E.U./dL (<1 E.U./dL) 06/16/17 09:55 Ur Leukocyte Esterase Negative [place]/uL (NEGATIVE) 06/16/17 09:55 Urine HCG, Qual Negative (NEGATIVE) 06/16/17 09:55 - Hospital Course Hospital Course: 27 year old female, with no significant PMH, presents to ED for RLQ abdominal pain for past 4 days. Pt was afebrile, hemodynamically stable, no leukocytosis. Abd US showed no cholelithiasis. CT abd pelvis showed early appendicitis, minimal inflammatory changes, 8 mm in diameter. Laprascopic appendectomy performed, withour complications. Pt discharged home with Motrin, told to follow up in 1-[address] Larsen outpatient. Discharge Exam - Head Exam Head Exam: ATRAUMATIC, NORMOCEPHALIC - Eye Exam Eye Exam: EOMI, PERRL. absent: Conjunctival injection, Nystagmus, Scleral icterus Pupil Exam: NORMAL ACCOMODATION, PERRL. absent: Fixed, Irregular, Unequal - ENT Exam ENT Exam: Mucous Membranes Moist - Neck Exam Neck exam: Full Rom - Respiratory Exam Respiratory Exam: Clear to PA & Lateral, NORMAL BREATHING PATTERN - Cardiovascular Exam Cardiovascular Exam: RRR, +S1, +S2. absent: Systolic Murmur - GI/Abdominal Exam GI & Abdominal Exam: Normal Bowel Sounds, Soft, Tenderness (mild TTP at lap incision sites, otherwise c/d/i). absent: Distended, Firm, Guarding, Hernia, Mass, Rebound, Rigid - Extremities Exam Extremities exam: normal inspection - Back Exam Back exam: NORMAL INSPECTION - Neurological Exam Neurological exam: Alert, Oriented x3 - Psychiatric Exam Psychiatric exam: Normal Affect, Normal Mood - Skin Skin Exam: Dry, Normal Color, Warm Discharge Plan - Discharge Medications Prescriptions: Ibuprofen [Motrin] 600 mg PO Q6 PRN #20 tab PRN Reason: Pain, Moderate (4-7) - Follow Up Plan Condition: FAIR Disposition: HOME/ ROUTINE Instructions: Appendicitis in Adults, Appendectomy, Laparoscopic Surgery (DC), Acute Abdominal Pain (DC), Acute Abdominal Pain (GEN) Additional Instructions: F/U with Dr. Larsen in 1-2 weeks. Call office for appointment. No bathing, can shower. Referrals: Dwayne Larsen MD [Staff Provider] - Swathi Srivastava MD [Primary Care Provider] -
[2017-06-17] MEDS ORDERED: Enoxaparin 40 mg Syringe SC SCH (10:00)
[2017-06-17] MEDS ORDERED: cefTRIAXone 1 gm 1 GM/100 ML BAG IVPB SCH (10:00)
== END 2017-06-17 08:39 | disposition home or self-care (01) | DRG 883 ==
LOC: ED 08:38 → ERH 14:04 → 3RNO 17:51
PROVIDERS: ADMIT Specialist; ATTEND Specialist
PROC: 0DTJ4ZZ Resection of Appendix, Percutaneous Endoscopic Approach (ICD-10-PCS; principal; 2017-06-16 14:00)
DX: K35.80 Unspecified acute appendicitis (principal); F41.9 Anxiety disorder, unspecified; F17.210 Nicotine dependence, cigarettes, uncomplicated; Z82.49 Family history of ischemic heart disease and other diseases of the circulatory system

== ENCOUNTER 2017-08-06 12:48 | Emergency (ER) | payer MEDICAID ==
[2017-08-06 13:04] VITALS: RESP 18; BMI 28.1
--- NOTE | 2017-08-06 13:26 | ED PDOC ---
Arrival/HPI - General Chief Complaint: Chest Pain Time Seen by Provider: 08/06/17 13:26 Historian: Patient - History of Present Illness Narrative History of Present Illness (Text): 08/06/17 13:26 Patient is a 27 year old female whose past medical history includes panic attack and heart murmur, who presents to the Emergency department complaining of persistent sharp chest pain, which started 6am today. Patient reports that her chest pain is exacerbated with movement and slightly with inspiration. Patient notes sleeping only 3-4 hours before her child wakes her up. She mentions that family members in her house are experiencing fever and diarrhea. Patient experiences panic attacks and takes Xanax for treatment. She also mentions experiencing RLQ abdominal pain which she attributes to her appendectomy which occurred May 2017. Patient is a current smoker but denies any drugs or EtOH. Patient denies fevers, chills, headache, dizziness, shortness of breath, dyspnea on exertion, cough, nausea, vomiting, diarrhea, back pain, neck pain, urinary/bowel changes, or any other complaint. Time/Duration: 4-6 hours Symptom Onset: Sudden Symptom Course: Unchanged Quality: Stabbing Context: Home Past Medical History - Provider Review Nursing Documentation Reviewed: Yes - Travel History Have you recently traveled outside [place] w/in the past 3 mons?: No - Infectious Disease Hx of Infectious Diseases: None - Cardiac Hx Cardiac Disorders: No - Pulmonary Hx Tuberculosis: No - Neurological HX Cerebrovascular Accident: No Hx Seizures: No - Hematological/Oncological Hx Cancer: No - Musculoskeletal/Rheumatological Hx Falls: No - Genitourinary/Gynecological Hx Sexually Transmitted Diseases: No - Psychiatric Hx Substance Use: Yes - Anesthesia Hx Anesthesia Reactions: No Hx Malignant Hyperthermia: No Family/Social History - Physician Review Nursing Documentation Reviewed: Yes Family/Social History: No Known Family HX Smoking Status: Current Some Days Smoker Hx Alcohol Use: Yes Hx Substance Use: Yes Substance used: MARIJUANA Allergies/Home Meds Allergies/Adverse Reactions: Allergies divalproex sodium [From Depakote] Adverse Reaction (Verified 06/16/17 08:57) SWELLING Review of Systems - Physician Review All systems were reviewed & negative as marked: Yes - Review of Systems Constitutional: absent: Fevers, Night Sweats Respiratory: absent: SOB, Cough Cardiovascular: Chest Pain (sharp) Gastrointestinal: absent: Diarrhea, Nausea, Vomiting Musculoskeletal: absent: Back Pain, Neck Pain Neurological: absent: Headache, Dizziness Physical Exam Vital Signs Reviewed: Yes Vital Signs Temp Pulse Resp BP Pulse Ox 08/06/17 17:07 98.1 F 69 18 141/65 100 08/06/17 16:33 98.1 F 69 18 143/60 99 08/06/17 15:23 98.0 F 74 18 131/71 99 08/06/17 12:57 98.4 F 77 18 135/76 99 Temperature: Afebrile Blood Pressure: Normal Pulse: Regular Respiratory Rate: Normal Appearance: Positive for: Well-Appearing Mental Status: Positive for: Alert and Oriented X 3 - Systems Exam Head: Present: Atraumatic, Normocephalic Pupils: Present: PERRL Extroacular Muscles: Present: EOMI Conjunctiva: Present: Normal Mouth: Present: Moist Mucous Membranes Neck: Present: Normal Range of Motion Respiratory/Chest: Present: Clear to Auscultation, Good Air Exchange. No: Respiratory Distress, Accessory Muscle Use Cardiovascular: Present: Regular Rate and Rhythm, Normal S1, S2. No: Murmurs Abdomen: No: Tenderness, Distention, Peritoneal Signs Back: Present: Normal Inspection Upper Extremity: Present: Normal Inspection. No: Cyanosis, Edema Lower Extremity: Present: Normal Inspection. No: Edema Neurological: Present: GCS=15, CN II-XII Intact, Speech Normal Skin: Present: Warm, Dry, Normal Color. No: Rashes Psychiatric: Present: Alert, Oriented x 3, Normal Insight, Normal Concentration Medical Decision Making ED Course and Treatment: 08/06/17 13:26 Impression: Patient is a 27 year old female complaining of persistent sharp chest pain which started earlier today. Differential Diagnosis included but are not limited to: Chest pain vs musculoskeletal chest pain. Rule out pulmonary embolism and [place]. Plan: --lab work --cardiac enzymes --D-Dimer if neg will order cxr. --Tylenol given to patient. -- Reassess and disposition Prior Visits: Notes and results from previous visits were reviewed. Patient was last seen in the emergency department on 06/16/17 for appendicitis and was hospitalized. Progress Notes: 08/06/17 13:14 EKG shows NSR at 77BPM with RAD and no ST/T wave changes. Interpreted by me. 08/06/17 15:04 Labs, cardiac enzyme, and D-Dimer results reviewed and are normal. --Toradol given to patient to alleviate pain and Chest X-ray will be ordered. 08/06/17 17:00 Creator : Thiago Patel MD FINDINGS: LUNGS: No active pulmonary disease. PLEURA: No significant pleural effusion identified, no pneumothorax apparent. CARDIOVASCULAR: Normal. OSSEOUS STRUCTURES: No significant abnormalities. VISUALIZED UPPER ABDOMEN: Normal. OTHER FINDINGS: None. IMPRESSION: No active disease. 08/06/17 17:08 Reevaluation: On reevaluation the patient feels better and is in no acute distress. I have discussed the results and plan with the patient, who expresses understanding. Patient given the opportunity to ask question, all questions were answered and there is agreement with the plan to discharge the patient home with prescription for Ibuprofen 600mg. Patient is stable for discharge. Patient was instructed to follow up with physician/clinic in 1-2 days or return if symptoms persist/worsen or new concerning symptoms arise. 08/06/17 17:16 Reassessment Condition: Unchanged, Improved - Lab Interpretations Lab Results: 08/06/17 13:52 08/06/17 13:52 Lab Results 08/06/17 13:52: Beta HCG, Quant < 2.39 08/06/17 13:52: Sodium 145, Potassium 4.3, Chloride 109 H, Carbon Dioxide 24, Anion Gap 16, BUN 9, Creatinine 0.7, Est GFR ( Amer) > 60, Est GFR (Non- Af Amer) > 60, Random Glucose 81, Calcium 9.5, Total Bilirubin 0.3, AST 27, ALT 45, Alkaline Phosphatase 76, Troponin I < 0.01, Total Protein 7.8, Albumin 4.6, Globulin 3.2, Albumin/Globulin Ratio 1.5 08/06/17 13:52: D-Dimer, Quantitative 189 08/06/17 13:52: WBC 10.1, RBC 5.18, Hgb 14.8 D, Hct 43.0, MCV 83.0, MCH 28.6, MCHC 34.4, RDW 13.3, Plt Count 356, MPV 9.5, Gran % 52.2, Lymph % (Auto) 41.3 H , [place] % (Auto) 4.4, Eos % (Auto) 1.7, Baso % (Auto) 0.4, Gran # 5.27, Lymph # ( Auto) 4.2 H, [place] # (Auto) 0.4, Eos # (Auto) 0.2, Baso # (Auto) 0.04 I have reviewed the lab results: Yes - RAD Interpretation Radiology Orders: 08/06/17 15:06 CXR [CHEST PORTABLE] [RAD] Stat - EKG Interpretation Interpreted by ED Physician: Yes Type: 12 lead EKG - Medication Orders Current Medication Orders: Acetaminophen (Tylenol 325mg Tab) 650 mg PO Q6H PRN PRN Reason: Fever >100.4 F Last Admin: 08/06/17 13:51 Dose: 650 mg MAR Pain/Vitals Document 08/06/17 13:51 SRE (Rec: 08/06/17 13:51 SRE [id number]) Pain Reassessment Is This A Pain ReAssessment? Yes Sleep Is patient sleeping during reassessment? No Presence of Pain Presence of Pain Yes Pain Scale Used Pain Scale Used Numeric Location Pain Location Body Site Chest Description Intermittent Intensity 5 Scale Used Numeric Discontinued Medications Ketorolac Tromethamine (Toradol) 30 mg IVP STAT STA Stop: 08/06/17 15:06 Last Admin: 08/06/17 15:15 Dose: 30 mg MAR Pain Assessment Document 08/06/17 15:15 SRE (Rec: 08/06/17 15:15 SRE [id number]) Pain Reassessment Is this a pain reassessment? Yes Sleep Is patient sleeping during reassessment? No Presence of Pain Presence of Pain Yes Pain Scale Used Pain Scale Used Numeric Location Pain Location Body Site Chest Description Description Intermittent IVP Administration Document 08/06/17 15:15 SRE (Rec: 08/06/17 15:15 SRE [id number]) Charges for Administration # of IVP Administrations 1 - Scribe Statement The provider has reviewed the documentation as recorded by the Scribe Stefan Ren Provider Scribe Attestation: All medical record entries made by the Scribe were at my direction and personally dictated by me. I have reviewed the chart and agree that the record accurately reflects my personal performance of the history, physical exam, medical decision making, and the department course for this patient. I have also personally directed, reviewed, and agree with the discharge instructions and disposition. Disposition/Present on Arrival - Present on Arrival Any Indicators Present on Arrival: No History of DVT/PE: No History of Uncontrolled Diabetes: No Urinary Catheter: No History of Decub. Ulcer: No History Surgical Site Infection Following: None - Disposition Have Diagnosis and Disposition been Completed?: No Diagnosis: Musculoskeletal chest pain Disposition: HOME/ ROUTINE Disposition Time: 17:18 Patient Plan: Discharge Patient Problems: Current Active Problems Problem Status Onset Musculoskeletal chest pain Acute Condition: GOOD Discharge Instructions (ExitCare): Chest Pain That Is Not Caused by the Heart ( DC), Costochondritis (DC), Chest Pain (ED) Prescriptions: Ibuprofen [Motrin Tab] 600 mg PO QID 5 Days tab Forms: [employer] (Slovak)
[2017-08-06 14:16] LABS: BASO # 0.04 K/mm3 (0.0-2.0); BASO % 0.4 % (0.0-3.0); EOS # 0.2 (0.0-0.7); EOS % 1.7 % (1.5-5.0); GRAN # 5.27 (1.4-6.5); GRAN % 52.2 % (50.0-68.0); HEMOGLOBIN 14.8 g/dL (12.0-16.0); LYMPH # 4.2 (1.2-3.4); LYMPH % 41.3 % (22.0-35.0); MEAN CORPUSCULAR HEMOGLOBIN 28.6 pg (25.0-35.0); MEAN CORPUSCULAR HGB CONC 34.4 g/dl (31.0-37.0); MEAN PLATELET VOLUME 9.5 fl (7.0-11.0); MONO # 0.4 (0.1-0.6); MONO % 4.4 % (1.0-6.0); RBC 5.18 10^6/uL (3.5-6.1); RED CELL DISTRIBUTION WIDTH 13.3 % (11.5-14.5); WHITE BLOOD COUNT 10.1 10^3/ul (4.5-11.0)
[2017-08-06 14:17] LABS: ALB/GLOB RATIO 1.5 (1.1-1.8); ALBUMIN 4.6 g/dL (3.0-4.8); ALT/SGPT 45 U/L (7-56); AST/SGOT 27 U/L (14-36); BLOOD UREA NITROGEN 9 mg/dL (7-21); CALCIUM 9.5 mg/dL (8.4-10.5); GFR AFRICAN-AMERICAN > 60; GFR NON-AFRICAN AMERICAN > 60
[2017-08-06 14:28] LABS: TROPONIN I < 0.01 ng/mL
[2017-08-06 16:35] VITALS: PULSE 69; TEMP 98.1
--- NOTE | 2017-08-06 16:41 | RAD ---
HISTORY: chest pain COMPARISON: No prior. FINDINGS: LUNGS: No active pulmonary disease. PLEURA: No significant pleural effusion identified, no pneumothorax apparent. CARDIOVASCULAR: Normal. OSSEOUS STRUCTURES: No significant abnormalities. VISUALIZED UPPER ABDOMEN: Normal. OTHER FINDINGS: None. IMPRESSION: No active disease.
[2017-08-06 17:08] VITALS: BP 141/65; O2SAT 100
--- NOTE | 2017-08-07 09:36 | CARD ---
APPROVED REPORT EKG Measurement Heart [id number] <Conclusion> Normal sinus rhythm Normal ECG
== END 2017-08-06 17:16 | disposition home or self-care (01) ==
LOC: ED 12:48
DX: R07.89 Other chest pain (principal); F17.200 Nicotine dependence, unspecified, uncomplicated
CPT/HCPCS: 71045; 80053; 84484; 84702; 85025; 85378; 93005; 96374; 99284; J1885

== ENCOUNTER 2018-05-04 12:02 | Emergency (ER) | payer BC, MEDICAID ==
[2018-05-04 12:02] VITALS: BMI 28.1
[2018-05-04 13:11] VITALS: RESP 18; TEMP 98.1; O2SAT 99
[2018-05-04] MEDS ORDERED: Sodium Chloride 0.9% 1,000 ML IV STA (13:24)
--- NOTE | 2018-05-04 13:24 | ED PDOC ---
Arrival/HPI - General Historian: Patient - History of Present Illness Narrative History of Present Illness (Text): 05/04/18 13:08 27 y/o female, pmh including appendicitis, allergic divalproex, c/o vaginal spotting and passing clot today. Pt. stated that she is chronically on the nuva ring which she removed it 04/21/2017, period been late but started to have menstrual bleeding and clot today, called the obgyn and concerning for so she came to the ER. Pt. currently doesn't have any nuva ring or any IUD device in her. Pt. stated that feels well, no numbness or tingling, no dizziness/fatigue or tired, just wants to know if she is , no night sweat, no other medical or psychological complaints. Past Medical History - Provider Review Nursing Documentation Reviewed: Yes - Infectious Disease Hx of Infectious Diseases: None - Reproductive Currently : Yes - Cardiac Hx Cardiac Disorders: No - Pulmonary Hx Tuberculosis: No - Neurological HX Cerebrovascular Accident: No Hx Seizures: No - Hematological/Oncological Hx Cancer: No - Musculoskeletal/Rheumatological Hx Falls: No - Genitourinary/Gynecological Hx Sexually Transmitted Diseases: No - Psychiatric Hx Substance Use: Yes - Anesthesia Hx Anesthesia Reactions: No Hx Malignant Hyperthermia: No Family/Social History - Physician Review Nursing Documentation Reviewed: Yes Family/Social History: Unknown Family HX Smoking Status: Current Some Days Smoker Hx Alcohol Use: Yes Hx Substance Use: Yes Substance used: MARIJUANA Allergies/Home Meds Allergies/Adverse Reactions: Allergies divalproex sodium [From Depakote] Adverse Reaction (Verified 06/16/17 08:57) SWELLING Review of Systems - Review of Systems Constitutional: absent: Fatigue, Fevers Eyes: absent: Vision Changes ENT: absent: Hearing Changes Respiratory: absent: SOB, Cough Cardiovascular: absent: Chest Pain Gastrointestinal: absent: Abdominal Pain, Nausea, Vomiting Genitourinary Female: Vaginal Bleeding. absent: Dysuria, Frequency, Hematuria, Urine Output Changes, Vaginal Discharge Musculoskeletal: absent: Arthralgias, Back Pain Skin: absent: Rash, Pruritis Neurological: absent: Headache, Dizziness Psychiatric: absent: Anxiety, Depression, Suicidal Ideation Physical Exam Vital Signs Reviewed: Yes Temperature: Afebrile Blood Pressure: Normal Pulse: Regular Respiratory Rate: Normal Appearance: Positive for: Well-Appearing, Non-Toxic, Comfortable Pain Distress: None Mental Status: Positive for: Alert and Oriented X 3 - Systems Exam Head: Present: Atraumatic, Normocephalic Pupils: Present: PERRL Extroacular Muscles: Present: EOMI Conjunctiva: Present: Normal Mouth: Present: Moist Mucous Membranes Neck: Present: Normal Range of Motion Respiratory/Chest: Present: Clear to Auscultation, Good Air Exchange. No: Respiratory Distress, Accessory Muscle Use Cardiovascular: Present: Regular Rate and Rhythm, Normal S1, S2. 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 No: Vaginal Discharge, Vaginal Bleeding, Vaginal Lesions, Adenexal Tenderness, Adenexal Mass, Cervical Motion Tendernes, Odor Back: Present: Normal Inspection Upper Extremity: Present: Normal Inspection. No: Cyanosis, Edema Lower Extremity: Present: Normal Inspection. No: Edema Neurological: Present: GCS=15, CN II-XII Intact, Speech Normal Skin: Present: Warm, Dry, Normal Color. No: Rashes Psychiatric: Present: Alert, Oriented x 3, Normal Insight, Normal Concentration Medical Decision Making ED Course and Treatment: 05/04/18 13:27 -labs -sonogram -IVF -Observe and reassess 05/04/18 16:00 -Urine hcg is negative -beta hcg 1633. -Type and screen: O+ -UA show no bacterial UTI, asymptomatic and no vaginal itching/discharge. -Labs show no acute findings. -Sonogram Single intrauterine gestational sac too small to characterize gestational age. Yolk sac is visualized however pole is not identified on the current examination. Clinical and imaging follow-up is recommended to assess viability. -Calling the patient obgyn Dr. Robby Calhoun. 05/04/18 16:32 -Dr. Calhoun didn't call back and the patient doesn't wanna wait. -Pt. feels well, discussed about the labs/radiology result and discussed the obgyn Dr. Robby Calhoun, she agreed on the discharge and follow up care with her. -I advised the patient to follow up with her own pmd for any prescription medication update as she is now. -Discharge home with education on take tylenol for pain as needed, bed rest, avoid having sex until clear by obgyn, pelvic rest, repeat the betahcg in 2 days as your is 1633 today, go to see your own pmd and obgyn within 2 days, return to the ER for any new or worsening signs or symptoms. - RAD Interpretation Radiology Orders: Date of service: 05/04/2018 PROCEDURE: OB Pelvic Ultrasound HISTORY: vaginal bleeding/clots COMPARISON: None available. FINDINGS: UTERUS: Single intrauterine gestation. Yolk sac is visualized however pole is not identified on the current examination. Gestational sac diameter measures 0.52 cm too small to characterize gestational age. Michelle-gestational hemorrhage: None. Uterus measures 8.1 x 4.0 x 5.6 cm. No mass CERVIX: Long and closed. No cervical abnormality seen. RIGHT OVARY: Measures 2.4 x 2.6 x 2.2 cm. No mass. Normal flow. LEFT OVARY: Measures 2.8 x 1.1 x 2.0 cm. No mass. Normal flow. FREE FLUID: None. OTHER FINDINGS: None. IMPRESSION: Single intrauterine gestational sac too small to characterize gestational age. Yolk sac is visualized however pole is not identified on the current examination. Clinical and imaging follow-up is recommended to assess viability. Quality Tech: Radiologist - PA / COOK SYRUP MAKER / Resident Statement MD/DO has reviewed & agrees with the documentation as recorded. Disposition/Present on Arrival - Present on Arrival Any Indicators Present on Arrival: No History of DVT/PE: No History of Uncontrolled Diabetes: No Urinary Catheter: No History of Decub. Ulcer: No History Surgical Site Infection Following: None - Disposition Have Diagnosis and Disposition been Completed?: Yes Diagnosis: , Vaginal bleeding in Disposition: HOME/ ROUTINE Disposition Time: 15:38 Patient Plan: Discharge Patient Problems: Current Active Problems Problem Status Onset Acute Vaginal bleeding in Acute Condition: GOOD Discharge Instructions (ExitCare): Medications and , Alcohol and , Care, Bleeding With Additional Instructions: -Discharge home with education on take tylenol for pain as needed, bed rest, avoid having sex until clear by obgyn, pelvic rest, repeat the betahcg in 2 days as your is 1633 today, go to see your own pmd and obgyn within 2 days, return to the ER for any new or worsening signs or symptoms. Referrals: Ander Morrison MD [Primary Care Provider] - Follow up with primary Ashley Calhoun MD [Medical Doctor] - Follow up with primary Forms: WORK NOTE
[2018-05-04 13:48] LABS: URINE BILIRUBIN NEGATIVE (NEGATIVE); URINE BLOOD LARGE (NEGATIVE); URINE GLUCOSE (UA) NEGATIVE (NEGATIVE); URINE LEUKOCYTE ESTERASE NEGATIVE Leu/uL (NEGATIVE); URINE PROTEIN NEGATIVE mg/dL (<30 mg/dL); URINE UROBILINOGEN 0.2 E.U./dL (<1 E.U./dL)
[2018-05-04 13:52] LABS: URINE APPEARANCE CLEAR (CLEAR); URINE COLOR YELLOW (YELLOW)
[2018-05-04 14:00] LABS: URINE BACTERIA LARGE /hpf; URINE RBC TNTC /hpf (0-2)
[2018-05-04 14:08] LABS: BASO # 0.05 K/mm3 (0.0-2.0); BASO % 0.5 % (0.0-3.0); EOS # 0.4 (0.0-0.7); EOS % 3.3 % (1.5-5.0); HEMOGLOBIN 14.5 g/dL (12.0-16.0); LYMPH % 37.5 % (22.0-35.0); MEAN CELL VOLUME 85.4 fl (80.0-105.0); MEAN CORPUSCULAR HEMOGLOBIN 28.5 pg (25.0-35.0); MEAN CORPUSCULAR HGB CONC 33.4 g/dl (31.0-37.0); MEAN PLATELET VOLUME 9.2 fl (7.0-11.0); MONO # 0.5 (0.1-0.6); MONO % 4.3 % (1.0-6.0); RBC 5.08 10^6/uL (3.5-6.1); RED CELL DISTRIBUTION WIDTH 12.4 % (11.5-14.5); WHITE BLOOD COUNT 10.6 10^3/uL (4.5-11.0)
[2018-05-04 14:16] LABS: ALB/GLOB RATIO 1.5 (1.1-1.8); ALBUMIN 4.6 g/dL (3.0-4.8); ALT/SGPT 27 U/L (7-56); AST/SGOT 30 U/L (14-36); BLOOD UREA NITROGEN 9 mg/dL (7-21); GFR NON-AFRICAN AMERICAN > 60
--- NOTE | 2018-05-04 15:04 | US ---
Date of service: 05/04/2018 PROCEDURE: OB Pelvic Ultrasound HISTORY: vaginal bleeding/clots COMPARISON: None available. FINDINGS: UTERUS: Single intrauterine gestation. Yolk sac is visualized however pole is not identified on the current examination. Gestational sac diameter measures 0.52 cm too small to characterize gestational age. Michelle-gestational hemorrhage: None. Uterus measures 8.1 x 4.0 x 5.6 cm. No mass CERVIX: Long and closed. No cervical abnormality seen. RIGHT OVARY: Measures 2.4 x 2.6 x 2.2 cm. No mass. Normal flow. LEFT OVARY: Measures 2.8 x 1.1 x 2.0 cm. No mass. Normal flow. FREE FLUID: None. OTHER FINDINGS: None. IMPRESSION: Single intrauterine gestational sac too small to characterize gestational age. Yolk sac is visualized however pole is not identified on the current examination. Clinical and imaging follow-up is recommended to assess viability.
[2018-05-04 16:41] VITALS: BP 129/84; PULSE 87
== END 2018-05-04 16:41 | disposition home or self-care (01) ==
LOC: ED 12:02
DX: O46.90 Antepartum hemorrhage, unspecified, unspecified trimester (principal); Z3A.00 Weeks of gestation of pregnancy not specified
CPT/HCPCS: 76817; 80053; 81001; 81025; 84702; 85025; 86850; 86900; 96360; 99283; J7030

== ENCOUNTER 2018-05-06 10:52 | Emergency (ER) | payer BC, MEDICAID ==
[2018-05-06 10:53] VITALS: BMI 28.1
[2018-05-06 11:06] VITALS: RESP 18; TEMP 98.1; O2SAT 98
--- NOTE | 2018-05-06 11:29 | ED PDOC ---
Arrival/HPI - General Chief Complaint: Female Genitourinary Time Seen by Provider: 05/06/18 10:57 Historian: Patient - History of Present Illness Narrative History of Present Illness (Text): 05/06/18 11:26 27-year-old female presents today for repeat beta hCG. Patient states she was seen in the emergency room 2 days ago and had an ultrasound that showed a yolk sac without pole and had a beta hCG of 1633. Patient states bleeding has decreased. She denies abdominal pain. No back pain. No nausea vomiting diarrhea constipation. Patient states she has follow-up appointment with her mail clerks supervisor in 3 days. No other complaints Past Medical History - Provider Review Nursing Documentation Reviewed: Yes - Travel History Have you recently traveled outside [place] w/in the past 3 mons?: No - Infectious Disease Hx of Infectious Diseases: None - Reproductive Currently : Yes - Cardiac Hx Cardiac Disorders: No - Pulmonary Hx Tuberculosis: No - Neurological HX Cerebrovascular Accident: No Hx Seizures: No - Hematological/Oncological Hx Cancer: No - Musculoskeletal/Rheumatological Hx Falls: No - Genitourinary/Gynecological Hx Sexually Transmitted Diseases: No - Psychiatric Hx Depression: No Hx Substance Use: No (MARIJUANA (7 years ago)) - Surgical History Hx Appendectomy: Yes Hx Section: Yes - Anesthesia Hx Anesthesia Reactions: No Hx Malignant Hyperthermia: No Family/Social History - Physician Review Nursing Documentation Reviewed: Yes Family/Social History: Unknown Family HX Smoking Status: Former Smoker Hx Alcohol Use: No Hx Substance Use: No (MARIJUANA (7 years ago)) Substance used: MARIJUANA Allergies/Home Meds Allergies/Adverse Reactions: Allergies divalproex sodium [From Depakote] Adverse Reaction (Verified 05/06/18 11:06) SWELLING Home Medications: Home Meds Medication Instructions Recorded Confirmed No Known Home Med 05/06/18 05/06/18 Review of Systems - Review of Systems Constitutional: absent: Fatigue, Fevers Respiratory: absent: SOB, Cough Cardiovascular: absent: Chest Pain, Palpitations Gastrointestinal: absent: Abdominal Pain, Constipation, Diarrhea, Nausea, Vomiting Genitourinary Female: Vaginal Bleeding. absent: Dysuria, Frequency, Hematuria, Vaginal Discharge Musculoskeletal: absent: Arthralgias, Back Pain, Neck Pain Skin: absent: Rash, Pruritis Neurological: absent: Headache, Dizziness Psychiatric: absent: Anxiety, Depression Physical Exam Vital Signs Reviewed: Yes Vital Signs Temp Pulse Resp BP Pulse Ox 05/06/18 11:01 98.1 F 89 18 125/78 98 Temperature: Afebrile Blood Pressure: Normal Pulse: Regular Respiratory Rate: Normal Appearance: Positive for: Well-Appearing, Non-Toxic, Comfortable Pain Distress: None Mental Status: Positive for: Alert and Oriented X 3 - Systems Exam Head: Present: Atraumatic Respiratory/Chest: Present: Clear to Auscultation Cardiovascular: Present: Regular Rate and Rhythm Abdomen: No: Tenderness Back: Present: Normal Inspection. No: CVA Tenderness Neurological: Present: GCS=15, Speech Normal Skin: Present: Warm, Dry, Normal Color. No: Rashes Psychiatric: Present: Alert, Oriented x 3 Medical Decision Making ED Course and Treatment: 05/06/18 11:28 27yr old female presenting for repeat HCG. beta hcg on 05/04/18 1633.10 repeat beta hcg; 1444 repeat US; FINDINGS: UTERUS: Measures 7.9 x 4.2 x 4.73 cm. Normal in size and appearance. No fibroid or other mass lesion seen. ENDOMETRIUM: Measures 7 mm in diameter. Unremarkable. CERVIX: No cervical abnormality identified. RIGHT OVARY: Measures 1.79 x 1.35 x 1.42 cm. No solid mass. Normal flow. LEFT OVARY: Measures 1.92 x 1.41 x 1.42 cm. No solid mass. Normal flow. FREE FLUID: No significant free fluid noted. OTHER FINDINGS: A small gestational sac can be seen. The yolk sac which was identified on the previous exam is no longer demonstrated. There is no pole demonstrated. IMPRESSION: A small gestational sac can be seen. The yolk sac which was identified on the previous exam is no longer demonstrated. There is no pole demonstrated. 05/06/18 13:08 pt advised to f/u with LANDSCAPE SUPERVISOR within the next 2days. return if symptoms worsen,persist or if new symptoms develop. pt states she has f/u appointment with dr. Calhoun in 3 days. Patient verbalizes understanding of discharge instructions and need for immediate followup. Impression: Threatened miscarriage Tylenol every 4 hours as needed for pain Increase fluids Followup with the appliance technician within the next 2 days Return immediately if symptoms worsen persist or if new symptoms develop: High fevers, heavy bleeding, severe abdominal pain, vomiting, diarrhea, dizziness or weakness or any other concerning symptoms develop. Disposition/Present on Arrival - Present on Arrival Any Indicators Present on Arrival: No History of DVT/PE: No History of Uncontrolled Diabetes: No Urinary Catheter: No History of Decub. Ulcer: No History Surgical Site Infection Following: None - Disposition Have Diagnosis and Disposition been Completed?: Yes Diagnosis: Threatened Disposition: HOME/ ROUTINE Disposition Time: 13:12 Patient Plan: Discharge Condition: GOOD Discharge Instructions (ExitCare): Threatened Miscarriage (DC) Additional Instructions: Tylenol every 4 hours as needed for pain Increase fluids Followup with the appliance technician within the next 2 days Return immediately if symptoms worsen persist or if new symptoms develop: High fevers, heavy bleeding, severe abdominal pain, vomiting, diarrhea, dizziness or weakness or any other concerning symptoms develop. Referrals: Ashley Calhoun MD [Medical Doctor] - [facility] - Follow up with primary Forms: [employer] (Emirati), WORK NOTE
--- NOTE | 2018-05-06 13:26 | US ---
Date of service: 05/06/2018 HISTORY: decreasing beta hcg. COMPARISON: Ultrasound dated 05/04/2018 TECHNIQUE: Transvaginal FINDINGS: UTERUS: Measures 7.9 x 4.2 x 4.73 cm. Normal in size and appearance. No fibroid or other mass lesion seen. ENDOMETRIUM: Measures 7 mm in diameter. Unremarkable. CERVIX: No cervical abnormality identified. RIGHT OVARY: Measures 1.79 x 1.35 x 1.42 cm. No solid mass. Normal flow. LEFT OVARY: Measures 1.92 x 1.41 x 1.42 cm. No solid mass. Normal flow. FREE FLUID: No significant free fluid noted. OTHER FINDINGS: A small gestational sac can be seen. The yolk sac which was identified on the previous exam is no longer demonstrated. There is no pole demonstrated. IMPRESSION: A small gestational sac can be seen. The yolk sac which was identified on the previous exam is no longer demonstrated. There is no pole demonstrated.
[2018-05-06 13:32] VITALS: BP 118/76; PULSE 86
== END 2018-05-06 13:31 | disposition home or self-care (01) ==
LOC: ED 10:52
DX: O20.0 Threatened abortion (principal)

== ENCOUNTER 2018-08-04 15:02 | Emergency (ER) | payer BC, MEDICAID ==
[2018-08-04 15:23] VITALS: BMI 31.4
[2018-08-04 15:24] VITALS: RESP 18; TEMP 97.9
--- NOTE | 2018-08-04 15:52 | ED PDOC ---
Arrival/HPI - General Chief Complaint: Female Genitourinary Time Seen by Provider: 08/04/18 15:05 Historian: Patient - History of Present Illness Narrative History of Present Illness (Text): 08/04/18 15:49 28-year-old female with no significant past medical history, presents complaining of 3-day history of intermittent crampy pelvic pain associated with feeling fatigue and nauseous, which she states she feels more when she is sitting down. Of note, patient states that she had a miscarriage in April and had a D&C, then the following month she had an IUD inserted by her PETROLEUM REFINING FIRER Dr. Calhoun. Patient reports that she did have a normal period on July 20. Otherwise she reports no fever, chills, vomiting, urinary symptoms, vaginal discharge, vaginal bleeding, vaginal odor, dyspareunia, back pain. Patient adds that she is only sexually active with one partner her . Past Medical History - Infectious Disease Hx of Infectious Diseases: None - Cardiac Hx Cardiac Disorders: No Hx Hypertension: No - Pulmonary Hx Respiratory Disorders: No Hx Tuberculosis: No - Neurological Hx Neurological Disorder: Yes HX Cerebrovascular Accident: No Hx Seizures: No - HEENT Hx HEENT Disorder: No - Renal Hx Renal Disorder: No - Endocrine/Metabolic Hx Endocrine Disorders: Yes Hx Systemic Lupus Erythematosus: Yes (??) - Hematological/Oncological Hx Blood Disorders: No Hx Cancer: No - Integumentary Hx Dermatological Disorder: No - Musculoskeletal/Rheumatological Hx Musculoskeletal Disorders: No Hx Falls: No - Gastrointestinal Hx Gastrointestinal Disorders: No - Genitourinary/Gynecological Hx Genitourinary Disorders: No Hx Sexually Transmitted Diseases: No - Psychiatric Hx Psychophysiologic Disorder: No Hx Depression: No Hx Substance Use: No (MARIJUANA (7 years ago)) - Surgical History Hx Appendectomy: Yes Hx Section: Yes - Anesthesia Hx Anesthesia: Yes Hx Anesthesia Reactions: No Hx Malignant Hyperthermia: No Family/Social History Family/Social History: No Known Family HX Smoking Status: Vape Hx Alcohol Use: No Hx Substance Use: No (MARIJUANA (7 years ago)) Substance used: MARIJUANA Allergies/Home Meds Allergies/Adverse Reactions: Allergies divalproex sodium [From Depakote] Adverse Reaction (Verified 08/04/18 15:23) SWELLING Home Medications: Home Meds Medication Instructions Recorded Confirmed Amitriptyline HCl 10 mg PO DAILY 05/29/18 05/29/18 Amitriptyline HCl 10 mg PO DAILY 05/30/18 05/30/18 Review of Systems - Review of Systems Constitutional: Fatigue. absent: Fevers Respiratory: absent: SOB, Cough Cardiovascular: absent: Chest Pain, Palpitations Gastrointestinal: Nausea. absent: Abdominal Pain, Diarrhea, Vomiting Genitourinary Female: absent: Dysuria, Frequency, Hematuria, Vaginal Bleeding, Vaginal Discharge Musculoskeletal: absent: Arthralgias, Back Pain Skin: absent: Rash, Pruritis, Skin Lesions Neurological: absent: Headache, Dizziness Physical Exam Vital Signs Temp Pulse Resp BP Pulse Ox 08/04/18 15:23 97.9 F 70 18 142/89 97 Temperature: Afebrile Blood Pressure: Normal Pulse: Regular Respiratory Rate: Normal Appearance: Positive for: Well-Appearing, Non-Toxic, Comfortable Pain Distress: None Mental Status: Positive for: Alert and Oriented X 3 - Systems Exam Head: Present: Atraumatic, Normocephalic Pupils: Present: PERRL Extroacular Muscles: Present: EOMI Conjunctiva: Present: Normal Mouth: Present: Moist Mucous Membranes Neck: Present: Normal Range of Motion Respiratory/Chest: Present: Clear to Auscultation, Good Air Exchange. No: Respiratory Distress, Accessory Muscle Use Cardiovascular: Present: Regular Rate and Rhythm, Normal S1, S2. No: Murmurs Abdomen: No: Tenderness, Distention, Peritoneal Signs, Rebound, Guarding Genitourinary/Pelvic Exam: Present: Normal External Genitalia, Vaginal Discharge (+scant amount of thick white dc without odor), Other (Female RN Jenise was present as driver/sales workers during the exam.). No: Vaginal Bleeding, Vaginal Lesions, Adenexal Tenderness, Adenexal Mass, Cervical Motion Tendernes, Odor Back: Present: Normal Inspection Upper Extremity: Present: Normal Inspection. No: Cyanosis, Edema Lower Extremity: Present: Normal Inspection. No: Edema Neurological: Present: GCS=15, CN II-XII Intact, Speech Normal Skin: Present: Warm, Dry, Normal Color. No: Rashes Psychiatric: Present: Alert, Oriented x 3, Normal Insight, Normal Concentration Medical Decision Making ED Course and Treatment: 08/04/18 15:52 Plan : - Labs - UA, urine cx - Reassess / disposition - TV US - GC cx sent. Patient is refusing pain medication at this time. 08/04/18 17:15 Uhcg : (-). UA : (-). Transvaginal ultrasound : Trace fluid in the endometrium. IUD present. Small pelvic fluid. Labs reviewed and wnl. GC cx via urine sent. Results pending. On reevaluation, patient remains awake alert and oriented 3 in no acute distress. Results d/w the patient. Advised to follow up with software technical lead in 1-2 days without fail, especially regarding the fluid in the endometrium. Advised to take otc tylenol/motrin prn for pain. Return to the emergency room at any time for any new or worsening symptoms. Patient states she fully agrees with and understands discharge instructions. States that she agrees with the plan and disposition. Verbalized and repeated discharge instructions and plan. I have given the patient opportunity to ask any additional questions. - RAD Interpretation Radiology Orders: 08/04/18 15:47 TRANSVAGINAL [US] Stat - PA / MARINATOR / Resident Statement MD/DO has reviewed & agrees with the documentation as recorded. Disposition/Present on Arrival - Present on Arrival Any Indicators Present on Arrival: No History of DVT/PE: No History of Uncontrolled Diabetes: No Urinary Catheter: No History of Decub. Ulcer: No History Surgical Site Infection Following: None - Disposition Have Diagnosis and Disposition been Completed?: Yes Diagnosis: Pelvic pain Disposition: HOME/ ROUTINE Disposition Time: 17:45 Patient Plan: Discharge Patient Problems: Current Active Problems Problem Status Onset Pelvic pain Acute Condition: STABLE Discharge Instructions (ExitCare): Acute Pelvic Pain (DC) Additional Instructions: Thank you for letting us take care of you today. You were treated for pelvic pain. The emergency medical care you received today was directed at your acute symptoms. Return to the Emergency Department if your symptoms worsen, do not improve, or if you have any other problems. Please contact your software technical lead doctor in 2 days for re-evaluation and follow up / or call one of the physicians/clinics you have been referred to that are listed on the Patient Visit Information form that is included in your discharge packet. Bring any paperwork you were given at discharge with you along with any medications you are taking to your follow up visit. Our treatment cannot replace ongoing medical care by a primary care provider (PCP) outside of the emergency department. Thank you for allowing the [facility] team to be part of your care today. If you had a urine culture: It will take several days for the results, if any change in treatment is needed we will contact you. If you had an STI test: It will take 48 hours for the results. Please call after 1 week if you have not heard back. Your US shows the following results, please follow up the results with your software technical lead. Transvaginal ultrasound : Trace fluid in the endometrium. IUD present. Small pelvic fluid. [facility]] - Follow up with primary Misael Worrell MD [Staff Provider] - Follow up with primary Forms: [employer] (Faroese)
--- NOTE | 2018-08-04 16:47 | US ---
Date of service: 08/04/2018 HISTORY: pain, has an IUD, r/o torsion COMPARISON: None available. TECHNIQUE: Transvaginal pelvic ultrasound. FINDINGS: UTERUS: Measures 8.7 x 4.0 x 5.0 cm. Anteverted. ENDOMETRIUM: Measures 1.0 cm in diameter. Small fluid in the endometrium. IUD. CERVIX: No cervical abnormality identified. RIGHT OVARY: Measures 3.1 x 1.7 x 3.5 cm. Blood flow is demonstrated. LEFT OVARY: Measures 3.0 x 2.0 x 2.5 cm. Blood flow is demonstrated. FREE FLUID: Small pelvic free fluid noted. OTHER FINDINGS: None. IMPRESSION: Trace fluid in the endometrium. IUD present. Small pelvic fluid.
[2018-08-04 17:10] LABS: URINE APPEARANCE CLEAR (CLEAR); URINE BILIRUBIN NEGATIVE (NEGATIVE); URINE BLOOD NEGATIVE (NEGATIVE); URINE COLOR YELLOW (YELLOW); URINE GLUCOSE (UA) NEGATIVE (NEGATIVE); URINE LEUKOCYTE ESTERASE NEGATIVE Leu/uL (NEGATIVE); URINE PROTEIN NEGATIVE mg/dL (<30 mg/dL); URINE UROBILINOGEN 0.2 E.U./dL (<1 E.U./dL)
[2018-08-04 17:22] LABS: BASO # 0.03 K/mm3 (0.0-2.0); BASO % 0.3 % (0.0-3.0); EOS # 0.2 (0.0-0.7); EOS % 1.9 % (1.5-5.0); HEMOGLOBIN 14.8 g/dL (12.0-16.0); LYMPH # 3.9 (1.2-3.4); LYMPH % 35.9 % (22.0-35.0); MEAN CELL VOLUME 85.1 fl (80.0-105.0); MEAN CORPUSCULAR HEMOGLOBIN 28.6 pg (25.0-35.0); MEAN CORPUSCULAR HGB CONC 33.6 g/dl (31.0-37.0); MEAN PLATELET VOLUME 9.5 fl (7.0-11.0); MONO # 0.6 (0.1-0.6); MONO % 5.8 % (1.0-6.0); RBC 5.17 10^6/uL (3.5-6.1); RED CELL DISTRIBUTION WIDTH 12.3 % (11.5-14.5); WHITE BLOOD COUNT 10.9 10^3/uL (4.5-11.0)
[2018-08-04 17:43] LABS: ALB/GLOB RATIO 1.4 (1.1-1.8); ALBUMIN 4.6 g/dL (3.0-4.8); ALT/SGPT 20 U/L (7-56); AST/SGOT 39 U/L (14-36); BLOOD UREA NITROGEN 8 mg/dL (7-21); CALCIUM 9.6 mg/dL (8.4-10.5); GFR NON-AFRICAN AMERICAN > 60; LIPASE 95 U/L (23-300)
[2018-08-04 18:11] VITALS: BP 130/86; PULSE 73; O2SAT 99
== END 2018-08-04 18:12 | disposition home or self-care (01) ==
LOC: ED 15:02
DX: R10.2 Pelvic and perineal pain (principal)